=== PATIENT | male | born 1980 | race Two or more races ===

== ENCOUNTER 2020-06-20 11:30 | Observation (INO) ==
[2020-06-20 11:40] VITALS: BMI 30.8
[2020-06-20] MEDS ORDERED: DECADRON INJ IVP ONE (11:56)
--- NOTE | 2020-06-20 12:00 | DR.SOBA ---
HPI Time Seen Time Seen by Provider: 06/20/20 11:49 Primary Care Physician Primary Care Physician: ENIO HPI Comment HPI Comment: pt on home O2 due to covid and incr SOB. O2 sats < 90% without O2. Complaints Chief Complaint:: PT C/O SHORTNESS OF BREATH AND LOW O2 SAT. HE TESTED POSITIVE FOR COVID ONE WEEK AGO. COVID-19 Coronavirus risk:travel/contact w/high risk person: No Has patient experienced Coronavirus symptoms: Yes Coronavirus symptoms experienced: Fever, Coughing and Shortness of Breath Reviewed Nurses Notes Reviewed: Yes Source History Provided: Patient Mode of Arrival Mode of Arrival: Ambulatory Timing Onset of Chief Complaint: 06/13/20 PMH PMH Past Medical History: Yes Past Medical History: Dyslipidemia and Hypertension Past Surgical History: No Family History History of Family Medical Conditions: Yes Family Medical History: Hypertension Social History Does patient currently use any type of tobacco product: No Have you used tobacco products in the last 12 months: No Type of Tobacco Use: None Does any household member use tobacco: No Alcohol Use: None Do you use any recreational Drugs:: No Lives With: Family Lives Where: Home Travel Risk Coronavirus risk:travel/contact w/high risk person: No Has patient experienced Coronavirus symptoms: Yes Coronavirus symptoms experienced: Fever, Coughing and Shortness of Breath Infectious screening In the last 2 months have you had wt loss of >10#?: NO Have you had fever, night sweats or hemotysis?: No Have you traveled outside the country in the last 6 months?: No Isolation: Droplet ROS Review of Systems Constitutional: See HPI, Fever and Malaise Eyes: No Symptoms Reported ENTM: No Symptoms Reported Respiratoy: Dry Cough Cardiovascular: No Symptoms Reported Gastrointestinal/Abdominal: No Symptoms Reported Genitourinary: No Symptoms Reported Neurological: No Symptoms Reported Musculoskeletal: No Symptoms Reported Integumentary: No Symptoms Reported Hematologic/Lymphatic: No Symptoms Reported Endocrine: No Symptoms Reported All Other Systems: Reviewed and Negative PE Vital Signs Vitals: Temperature 98.1 F Pulse Rate 78 Respiratory Rate 18 Blood Pressure 107/67 O2 Sat by Pulse Oximetry 98 General General Appearance: Alert and Anxious; negative In No Apparent Distress Head Head Exam: Normal Inspection, Atraumatic and Normocephalic Eyes Eye exam: Normal Appearance, PERRL and EOMI ENT ENT Exam: Normal Exam and Normal Oropharynx Neck Neck Exam: Normal Inspection Respiratory Respiratory Exam: Normal Lung Sounds Bilat and Accessory Muscle Use Abdominal Exam Abdominal Exam: Normal Inspection and Normal Bowel Sounds Extremities Extremities Exam: Normal Inspection and Full ROM Back Back Exam: Normal Inspection and Full ROM Neurologic Neurological Exam: Alert, Oriented X3 and CN II-XII Intact ROR Labs Reviewed Laboratory Results Reviewed?: Yes Result Diagrams: 06/20/20 12:10 06/20/20 12:10 Laboratory: WBC 9.9 X10^3/uL (3.6-10.0) 06/20/20 12:10 RBC 4.99 X10^6/uL (4.7-6.0) 06/20/20 12:10 Hgb 14.7 g/dL (13.5-18.0) 06/20/20 12:10 Hct 43.3 % (42.0-54.0) 06/20/20 12:10 MCV 86.7 fL (80.0-100.0) 06/20/20 12:10 MCH 29.5 pg (27.0-34.0) 06/20/20 12:10 MCHC 34.0 g/dL (33.0-35.0) 06/20/20 12:10 RDW 13.3 % (11.6-16.5) 06/20/20 12:10 Plt Count 190 X10^3/uL (150.0-450.0) 06/20/20 12:10 MPV 8.0 fL (7.4-11.0) 06/20/20 12:10 Neut % (Auto) 84.8 % (42.0-75.0) H 06/20/20 12:10 Lymph % (Auto) 7.4 % (21.0-51.0) L 06/20/20 12:10 [place] % (Auto) 7.6 % (0.0-13.0) 06/20/20 12:10 Eos % (Auto) 0.0 % (0.9-2.9) L 06/20/20 12:10 Baso % (Auto) 0.2 % (0.2-1.0) 06/20/20 12:10 Neut # (Auto) 8.4 x10^3/uL (2.2-4.8) H 06/20/20 12:10 Lymph # (Auto) 0.7 X10^3/uL (1.3-2.9) L 06/20/20 12:10 [place] # (Auto) 0.8 x10^3/uL (0.3-0.8) 06/20/20 12:10 Eos # (Auto) 0.0 x10^3/uL (0.0-0.2) 06/20/20 12:10 Baso # (Auto) 0.0 X10^3/uL (0.0-0.1) 06/20/20 12:10 Absolute Nucleated RBC 0.0 /100WBC 06/20/20 12:10 D-Dimer 0.35 ug/ml (0.0-0.57) 06/20/20 12:10 Sample Site Rrad 06/20/20 12:38 ABG pH 7.510 (7.35-7.45) H 06/20/20 12:38 ABG pCO2 31.0 mmHg (35.0-45.0) L 06/20/20 12:38 ABG pO2 68.0 mmHg (80.0-100.0) L 06/20/20 12:38 ABG HCO3 24.7 mmol/L (22-26) 06/20/20 12:38 ABG O2 Saturation 95.0 % (90-100) 06/20/20 12:38 ABG Base Excess 2.2 mmol/L (-2.0-2.0) H 06/20/20 12:38 Cesar Test Pos 06/20/20 12:38 A-a Gradient 43.0 mmHg 06/20/20 12:38 FiO2 21.0 06/20/20 12:38 Blood Gas Comments Pt kendall well elj cdn 06/20/20 12:38 Sodium 134 mmol/L (136-145) L 06/20/20 12:10 Corrected Sodium TNP 06/20/20 12:10 Potassium 4.2 mmol/L (3.5-5.1) 06/20/20 12:10 Chloride 97 mmol/L (98-107) L 06/20/20 12:10 Carbon Dioxide 27.3 mmol/L (21-32) 06/20/20 12:10 BUN 19 mg/dL (7-18) H 06/20/20 12:10 Creatinine 1.20 mg/dL (0.70-1.30) 06/20/20 12:10 Est GFR (MDRD) Af Amer > 60 (>60) 06/20/20 12:10 Est GFR (MDRD) Non-Af > 60 (>60) 06/20/20 12:10 Glucose 101 mg/dL (65-99) H 06/20/20 12:10 Calcium 8.9 mg/dL (8.5-10.1) 06/20/20 12:10 Corrected Calcium 9.5 mg/dL (8.5-10.1) 06/20/20 12:10 Ferritin 850 ng/mL (26-388) H 06/20/20 12:10 Total Bilirubin 0.40 mg/dL (0.2-1.0) 06/20/20 12:10 AST 52 Units/L (15-37) H 06/20/20 12:10 ALT 113 Units/L (12-78) H 06/20/20 12:10 Alkaline Phosphatase 135 Units/L (46-116) H 06/20/20 12:10 Creatine Kinase 200 Units/L (39-308) 06/20/20 12:10 CK-MB (CK-2) < 1.0 ng/mL (0-4.0) 06/20/20 12:10 CK/CKMB % Calc 0.5 % (<4) 06/20/20 12:10 Troponin I < 0.02 ng/mL (0-1.5) 06/20/20 12:10 C-Reactive Protein 77.50 mg/L (0-3.0) H 06/20/20 12:10 B-Natriuretic Peptide 23.5 pg/mL (0-79) 06/20/20 12:10 Total Protein 7.8 g/dL (6.4-8.2) 06/20/20 12:10 Albumin 3.2 g/dL (3.4-5.0) L 06/20/20 12:10 Globulin 4.6 g/dL (2.5-4.5) H 06/20/20 12:10 Albumin/Globulin Ratio 0.7 Ratio (1.1-2.1) L 06/20/20 12:10 Other Results Comments: will admit to dr ren. Opioid Opioid Risk Tool Age (Horace box if 16-45): Yes History of Preadolescent Sexual Abuse: No Total: 1 Total Score Risk Category: Low Risk Copyright: Bill GALAN predicting aberrant behaviors Diagnosis Discharge Problem: COVID-19
[2020-06-20] MEDS ORDERED: DECADRON INJ ONE (12:02)
[2020-06-20 12:23] LABS: BASOPHILS % (AUTO) 0.2 % (0.2-1.0); HEMATOCRIT 43.3 % (42.0-54.0); HEMOGLOBIN 14.7 g/dL (13.5-18.0); LYMPHOCYTES # (AUTO) 0.7 X10^3/uL (1.3-2.9); LYMPHOCYTES % (AUTO) 7.4 % (21.0-51.0); MEAN CORPUSCULAR HEMOGLOBIN 29.5 pg (27.0-34.0); MEAN CORPUSCULAR VOLUME 86.7 fL (80.0-100.0); MONOCYTES # (AUTO) 0.8 x10^3/uL (0.3-0.8); MONOCYTES % (AUTO) 7.6 % (0.0-13.0); NEUTROPHILS # (AUTO) 8.4 x10^3/uL (2.2-4.8); NEUTROPHILS % (AUTO) 84.8 % (42.0-75.0); PLATELET COUNT 190 X10^3/uL (150.0-450.0); RED BLOOD COUNT 4.99 X10^6/uL (4.7-6.0); RED CELL DISTRIBUTION WIDTH 13.3 % (11.6-16.5); WHITE BLOOD COUNT 9.9 X10^3/uL (3.6-10.0)
[2020-06-20 12:42] LABS: BLOOD UREA NITROGEN 19 mg/dL (7-18); CALCIUM 8.9 mg/dL (8.5-10.1); CARBON DIOXIDE 27.3 mmol/L (21-32); CHLORIDE 97 mmol/L (98-107); SODIUM 134 mmol/L (136-145); TROPONIN I < 0.02 ng/mL (0-1.5); eGFR NON BLACK RACES > 60 (>60)
[2020-06-20 12:44] LABS: ABG ALLEN TEST POS; ABG BASE EXCESS 2.2 mmol/L (-2.0-2.0); ABG HCO3 24.7 mmol/L (22-26)
[2020-06-20 12:50] LABS: ALANINE AMINOTRANSFERASE 113 Units/L (12-78); ALBUMIN 3.2 g/dL (3.4-5.0); ALKALINE PHOSPHATASE 135 Units/L (46-116); ASPARTATE AMINO TRANSFERASE 52 Units/L (15-37); CKMB % 0.5 % (<4); COR CA(FOR HYPOALB) 9.5 mg/dL (8.5-10.1); CREATINE KINASE 200 Units/L (39-308); CREATINE KINASE MB < 1.0 ng/mL (0-4.0); TOTAL PROTEIN 7.8 g/dL (6.4-8.2)
--- NOTE | 2020-06-20 13:06 | RAD ---
HISTORYSOB, LOW 02 SAT, PT. TESTED POSITIVE FOR COVID 1 WEEK AGOSTUDYCHEST, 1 VIEWCOMPARISONNoneFINDINGSThe trachea is midline. The cardiac silhouette is unremarkable . The lungs demonstrate scattered interstitial infiltrates throughout both lungs compatible history of COVID-19 pneumonia the bony thorax is unremarkable.IMPRESSIONScattered interstitial infiltrates throughout both lungs compatible history of COVID-19 pneumoniaElectronically signed by: KELLY FREEDMAN (Jun 20, 2020 13:04:10)
[2020-06-20] MEDS ORDERED: REMDESIVIR 200 MG in NS 250 ML IV 250 ML IV ONE (15:01)
[2020-06-20] MEDS ORDERED: REMDESIVIR IV ONE (15:04)
[2020-06-20] MEDS ORDERED: NS 250 ML IV 250 ML IV ONE (15:04)
[2020-06-20] MEDS ORDERED: NS 1000 ML 1,000 ML ONE (15:16)
[2020-06-20] MEDS ORDERED: NS 1000 ML 1,000 ML IV SCH (15:26)
[2020-06-20] MEDS ORDERED: XOPENEX 1.25 MG/3 ML NEBULE NEB ONE (16:23)
[2020-06-20] MEDS: XOPENEX 1.25 MG/3 ML NEBULE NEB SCH (16:34)
[2020-06-20] MEDS ORDERED: VITAMIN D (1.25MG) PO SCH (17:30)
[2020-06-20] MEDS ORDERED: VITAMIN A PO SCH (17:30)
[2020-06-20] MEDS ORDERED: PHARMACY CONSULT - IVERMECTIN XX SCH (18:00)
[2020-06-20] MEDS: THIAMINE HCL INJ IVP SCH ×2 (18:14→21:11)
[2020-06-20] MEDS: ASCORBIC ACID INJ MULTI-DOSE VIAL 1,500 MG in NS 100 ML IV 100 ML IV SCH ×2 (18:14→23:03)
[2020-06-20] MEDS: LIPITOR TAB 80 MG PO SCH (18:14)
[2020-06-20] MEDS: NS 1000 ML 1,000 ML IV SCH (18:30)
[2020-06-20] MEDS: PEPCID TAB 40 MG PO SCH ×2 (18:45→21:10)
[2020-06-20] MEDS: ZINC SULFATE PO SCH ×2 (18:45→21:11)
[2020-06-20] MEDS: LOVENOX INJ 30 MG SYR SC SCH ×2 (18:46→21:10)
[2020-06-20] MEDS ORDERED: PULMICORT NEB TX 0.5 MG NEB ONE (19:11)
[2020-06-20] MEDS ORDERED: BROVANA ONE (19:11)
[2020-06-20] MEDS: PULMICORT NEB TX 0.5 MG NEB SCH (20:04)
[2020-06-20] MEDS: BROVANA IN SCH (20:10)
[2020-06-20] MEDS: IVERMECTIN PO SCH (21:09)
[2020-06-20] MEDS: MELATONIN PO SCH (21:10)
[2020-06-21] MEDS: XOPENEX 1.25 MG/3 ML NEBULE NEB SCH ×4 (00:01→17:12)
[2020-06-21] MEDS: ASCORBIC ACID INJ MULTI-DOSE VIAL 1,500 MG in NS 100 ML IV 100 ML IV SCH ×4 (04:00→20:44)
[2020-06-21 06:59] LABS: BASOPHILS % (AUTO) 0.1 % (0.2-1.0); HEMOGLOBIN 14.3 g/dL (13.5-18.0); LYMPHOCYTES % (AUTO) 11.7 % (21.0-51.0); MEAN CORPUSCULAR HEMOGLOBIN 29.6 pg (27.0-34.0); MEAN CORPUSCULAR VOLUME 87.2 fL (80.0-100.0); MEAN PLATELET VOLUME 8.1 fL (7.4-11.0); MONOCYTES # (AUTO) 0.8 x10^3/uL (0.3-0.8); MONOCYTES % (AUTO) 9.2 % (0.0-13.0); NEUTROPHILS # (AUTO) 6.7 x10^3/uL (2.2-4.8); PLATELET COUNT 223 X10^3/uL (150.0-450.0); RED BLOOD COUNT 4.82 X10^6/uL (4.7-6.0); RED CELL DISTRIBUTION WIDTH 13.5 % (11.6-16.5); WHITE BLOOD COUNT 8.5 X10^3/uL (3.6-10.0)
[2020-06-21 07:16] LABS: ALANINE AMINOTRANSFERASE 110 Units/L (12-78); ALBUMIN 2.8 g/dL (3.4-5.0); ALKALINE PHOSPHATASE 120 Units/L (46-116); ASPARTATE AMINO TRANSFERASE 40 Units/L (15-37); BLOOD UREA NITROGEN 19 mg/dL (7-18); CALCIUM 8.5 mg/dL (8.5-10.1); CHLORIDE 101 mmol/L (98-107); COR CA(FOR HYPOALB) 9.5 mg/dL (8.5-10.1); COR NA(FOR HYPERGLY) 139 mmol/L (136-145); CREATININE 1.07 mg/dL (0.70-1.30); SODIUM 139 mmol/L (136-145); TOTAL PROTEIN 7.4 g/dL (6.4-8.2); eGFR NON BLACK RACES > 60 (>60)
[2020-06-21] MEDS: PEPCID TAB 40 MG PO SCH ×2 (09:09→20:46)
[2020-06-21] MEDS: REMDESIVIR 100 MG in NS 250 ML IV 250 ML IV SCH (09:09)
[2020-06-21] MEDS: ZINC SULFATE PO SCH ×2 (09:10→20:47)
[2020-06-21] MEDS: DECADRON TAB PO SCH (09:11)
[2020-06-21] MEDS: LIPITOR TAB 80 MG PO SCH (09:11)
[2020-06-21] MEDS: THIAMINE HCL INJ IVP SCH ×2 (09:11→20:46)
[2020-06-21] MEDS: LOVENOX INJ 30 MG SYR SC SCH ×2 (09:12→20:45)
[2020-06-21] MEDS: BROVANA IN SCH ×2 (09:14→20:41)
[2020-06-21] MEDS: PULMICORT NEB TX 0.5 MG NEB SCH ×2 (09:19→20:50)
[2020-06-21] MEDS: NS 1000 ML 1,000 ML IV SCH (18:10)
[2020-06-21] MEDS: IVERMECTIN PO SCH (20:45)
[2020-06-21] MEDS: MELATONIN PO SCH (20:46)
[2020-06-22] MEDS: XOPENEX 1.25 MG/3 ML NEBULE NEB SCH ×2 (00:34→05:43)
[2020-06-22] MEDS: ASCORBIC ACID INJ MULTI-DOSE VIAL 1,500 MG in NS 100 ML IV 100 ML IV SCH ×2 (04:00→08:16)
[2020-06-22 05:21] LABS: BASOPHILS % (AUTO) 0.1 % (0.2-1.0); HEMATOCRIT 42.3 % (42.0-54.0); HEMOGLOBIN 14.3 g/dL (13.5-18.0); LYMPHOCYTES # (AUTO) 0.8 X10^3/uL (1.3-2.9); LYMPHOCYTES % (AUTO) 13.6 % (21.0-51.0); MEAN CORPUSCULAR HEMOGLOBIN 29.6 pg (27.0-34.0); MEAN CORPUSCULAR HGB CONC 33.8 g/dL (33.0-35.0); MEAN CORPUSCULAR VOLUME 87.6 fL (80.0-100.0); MEAN PLATELET VOLUME 7.8 fL (7.4-11.0); MONOCYTES # (AUTO) 0.7 x10^3/uL (0.3-0.8); NEUTROPHILS # (AUTO) 4.4 x10^3/uL (2.2-4.8); NEUTROPHILS % (AUTO) 74.3 % (42.0-75.0); PLATELET COUNT 245 X10^3/uL (150.0-450.0); RED BLOOD COUNT 4.82 X10^6/uL (4.7-6.0); RED CELL DISTRIBUTION WIDTH 13.5 % (11.6-16.5)
[2020-06-22 06:05] LABS: ALANINE AMINOTRANSFERASE 147 Units/L (12-78); ALBUMIN 2.7 g/dL (3.4-5.0); ALKALINE PHOSPHATASE 136 Units/L (46-116); ASPARTATE AMINO TRANSFERASE 49 Units/L (15-37); BLOOD UREA NITROGEN 16 mg/dL (7-18); CALCIUM 8.7 mg/dL (8.5-10.1); CARBON DIOXIDE 26.3 mmol/L (21-32); COR CA(FOR HYPOALB) 9.7 mg/dL (8.5-10.1); TOTAL PROTEIN 7.3 g/dL (6.4-8.2); eGFR NON BLACK RACES > 60 (>60)
[2020-06-22 06:07] LABS: CHLORIDE 103 mmol/L (98-107); COR NA(FOR HYPERGLY) 141 mmol/L (136-145); SODIUM 140 mmol/L (136-145)
[2020-06-22] MEDS: LIPITOR TAB 80 MG PO SCH (08:17)
[2020-06-22] MEDS: DECADRON TAB PO SCH (08:17)
[2020-06-22] MEDS: PEPCID TAB 40 MG PO SCH (08:17)
[2020-06-22] MEDS: ZINC SULFATE PO SCH (08:17)
[2020-06-22] MEDS: THIAMINE HCL INJ IVP SCH (08:18)
[2020-06-22] MEDS: LOVENOX INJ 30 MG SYR SC SCH (08:21)
[2020-06-22] MEDS ORDERED: VITAMIN D3 125 mcg (5,000 UNITS) PO SCH (09:00)
[2020-06-22] MEDS ORDERED: VITAMIN A PO SCH (09:00)
[2020-06-22] MEDS: BROVANA IN SCH (09:04)
[2020-06-22] MEDS: PULMICORT NEB TX 0.5 MG NEB SCH (09:11)
[2020-06-22] MEDS: REMDESIVIR 100 MG in NS 250 ML IV 250 ML IV SCH (09:52)
[2020-06-22 11:34] VITALS: BP 126/75
== END 2020-06-22 12:30 | disposition home or self-care (01) ==
LOC: ER 11:36 → INTOOBSV 15:28 → ICU 15:28
PROVIDERS: ADMIT Obstetrics & Gynecology Obstetrics; ATTEND Obstetrics & Gynecology Obstetrics
DX: R79.82 Elevated C-reactive protein (CRP); R06.02 Shortness of breath; Z99.81 Dependence on supplemental oxygen; R79.89 Other specified abnormal findings of blood chemistry; J12.82 Pneumonia due to coronavirus disease 2019; U07.1 COVID-19